=== PATIENT | female | born 1965 | race Caucasian/White ===

== ENCOUNTER 2018-05-13 13:31 | Emergency (ER) | payer OTHER ==
[~2018-05-13] VITALS: Ht 165.1 cm; Wt 65.0 kg
[2018-05-13] MEDS ORDERED: SODIUM CHLOR 0.9% 1000 ML INJ 1,000 ML IV SCH (13:44)
[2018-05-13 13:45] VITALS: BP 130/86; PULSE 102; RESP 20; O2SAT 97
[2018-05-13] MEDS ORDERED: LORazepam 2 MG/ML VIAL IM ONE (13:45)
[2018-05-13] MEDS ORDERED: SODIUM CHLORIDE 0.9% FLUSH 10 ML FLUSH IV FLUSH PRN (13:45)
[2018-05-13] MEDS ORDERED: HALOPERIDOL LACTATE 5 MG/ML AMP IM ONE (13:45)
[2018-05-13 14:02] VITALS: BP 130/86; PULSE 102; RESP 20; O2SAT 97
[2018-05-13] MEDS ORDERED: PLAV75TA29 PO (14:11)
[2018-05-13] MEDS ORDERED: HYDR-3576 PO (14:11)
[2018-05-13] MEDS ORDERED: OMEP40CA2 (14:11)
[2018-05-13] MEDS ORDERED: XANA2TAB2 PO (14:11)
[2018-05-13 14:16] VITALS: BP 130/86; PULSE 102; RESP 20; TEMP 98.2; O2SAT 97
[2018-05-13 14:55] LABS: AUTOMATED NEUTROPHIL # 1.8 TH/MM3 (1.8-7.7); BASOPHIL % 0.3 % (0.0-2.0); EOSINOPHIL # 0.3 TH/MM3 (0-0.4); EOSINOPHIL % 8.9 % (0.0-4.0); HEMATOCRIT 30.1 % (35.0-46.0); HEMOGLOBIN 10.2 GM/DL (11.6-15.3); LYMPH % 16.7 % (9.0-44.0); LYMPHOCYTE # 0.5 TH/MM3 (1.0-4.8); MEAN CELL VOLUME 88.8 FL (80.0-100.0); MEAN CORPUSCULAR HEMOGLOBIN 30.2 PG (27.0-34.0); MONO % 17.8 % (0.0-8.0); MONOCYTE # 0.6 TH/MM3 (0-0.9); NEUT % 56.3 % (16.0-70.0); PLATELET COUNT 161 TH/MM3 (150-450); RED BLOOD COUNT 3.39 MIL/MM3 (4.00-5.30); RED CELL DISTRIBUTION WIDTH 13.2 % (11.6-17.2); WHITE BLOOD COUNT 3.2 TH/MM3 (4.0-11.0)
[2018-05-13 15:07] LABS: LACTIC ACID SEPSIS PROTOCOL 2.9 mmol/L (0.4-2.0)
[2018-05-13 15:12] LABS: ALBUMIN 3.5 GM/DL (3.4-5.0); ALT (GPT) 48 U/L (10-53); AST (GOT) 61 U/L (15-37); BICARBONATE 20.8 MEQ/L (21.0-32.0); BLOOD UREA NITROGEN 20 MG/DL (7-18); CALCIUM 8.7 MG/DL (8.5-10.1); CHLORIDE 110 MEQ/L (98-107); CREATININE 0.99 MG/DL (0.50-1.00); GLOMERULAR FILTRATION RATE 59 ML/MIN (>89); GLUCOSE,RANDOM 71 MG/DL (74-106); SODIUM (NA) 144 MEQ/L (136-145)
[2018-05-13 15:22] LABS: ALKALINE PHOSPHATASE 70 U/L (45-117); TOTAL BILIRUBIN ADULT 0.5 MG/DL (0.2-1.0); TOTAL PROTEIN 8.4 GM/DL (6.4-8.2)
[2018-05-13] MEDS ORDERED: SODIUM CHLOR 0.9% 1000 ML INJ 1,000 ML IV ONE (15:30)
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
[2018-05-13 16:32] VITALS: BP 142/82; PULSE 81; RESP 15; TEMP 98.1; O2SAT 100
[2018-05-13 17:14] LABS: BILIRUBIN, URINE NEG (NEG); BLOOD, URINE NEG (NEG); GLUCOSE,URINE NEG (NEG); HYALINE CAST, URINE 1 /lpf (RARE); KETONE, URINE TRACE mg/dL (NEG); MUCUS URINE FEW /lpf (OCC); NITRITE,URINE NEG (NEG); SQUAMOUS EPITHELIAL CELL URINE 1 /hpf (0-5); URINE COLOR YELLOW (YELLW/STRAW); URINE LEUKOCYTE ESTERASE NEG (NEG)
--- NOTE | 2018-05-13 17:57 | RADRPT ---
EXAM DATE: 05/13/2018 5:51 PM EDT AGE/SEX: 52 years / Female INDICATIONS: Altered mental status, cephalgia. CLINICAL DATA: This is the patient's initial encounter. Patient reports that signs and symptoms have been present for 1 day and indicates a pain score of 8/10. MEDICAL/SURGICAL HISTORY: Cardiovascular disease. Diabetes. None. RADIATION DOSE: 52.13 CTDI (mGy) COMPARISON: No prior exams available for comparison. TECHNIQUE: CT of the head without contrast. Using automated exposure control and adjustment of the mA and/or kV according to patient size, radiation dose was kept as low as reasonably achievable to ob tain optimal diagnostic quality images. FINDINGS: Cerebrum: The ventricles are normal for age. Small area of encephalomalacia is identified in the le ft parieto-occipital region. No evidence of midline shift, mass lesion, hemorrhage or acute infarctio n. No extraaxial fluid collections are seen. Posterior Fossa: The cerebellum and brainstem are intact. The 4th ventricle is midline. The cerebe llopontine angle is unremarkable. Extracranial: The visualized portion of the orbits is intact. Skull: The calvaria is intact. No evidence of skull fracture. CONCLUSION: 1. 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 2. No evidence of acute infarct, hemorrhage, mass or edema. Electronically signed by: Paul Langston MD 05/13/2018 5:55 PM EDT
[2018-05-13 21:00] VITALS: BP 146/72; PULSE 80; RESP 18; O2SAT 98
[2018-05-14 06:27] VITALS: BP 116/72; PULSE 79; RESP 18; O2SAT 97
--- NOTE | 2018-05-14 16:30 | PD.PSY.CON ---
Provisional Diagnosis Admission Date Kelly I. Substance induced mood disorder, amphetamines use disorder Kelly II. unspecified personality disorder Kelly III. AIDS Kelly IV. homeless Kelly V. 57 History of Present Illness Service Psychiatry Consult Requested By ER Reason for Consult Bizarre behavior Primary Care Physician Unknown HPI Patient was seen this morning at 7:15 AM The patient is a 52-year-old woman, homeless, single, unemployed, with psychiatric history of bipolar disorder, amphetamine use disorder, previous psychiatric hospitalizations, no suicide attempts, medical history of AIDS, who presents to the emergency department for psychiatric evaluation under Hay[place] act. According to the Hayward act subject attempted to spit and throw her blood on bystanders. Subject stated to reporting democrat that she wanted to kill herself over the of a family member. She also advised that she ingested alcohol specifically a 4 loco. Patient became combative and aggressive, she was placed in protective custody and then while in the back of the [employer] car she hit her head on the cage multiple times stating she wanted to kill herself. Patient had a bottle of prescription medication but denied taking them. The bottle was for Keflex. Due to patient being very combative she was transported to the emergency department by [facility] fire rescue. Patient was restrained to the [facility]. However, today on psychiatric evaluation the patient is clinically sober, she admits that yesterday she was high amphetamines. The remember what she was doing. She denies depression, denies anxiety, denies psychosis, she denies suicidal and homicidal ideation, she denies visual and auditory hallucinations. Review of Systems Constitutional: DENIES: Diaphoretic episodes, Fatigue, Fever, Weight gain, Weight loss, Chills, Dizziness, Change in appetite, Night Sweats Endocrine: DENIES: Abnorml menstrual pattern, Heat/cold intolerance, Polydipsia , Polyuria, Polyphagia Eyes: DENIES: Blurred vision, Diplopia, Eye inflammation, Eye pain, Vision loss , Photosensitivity, Double Vision Ears, nose, mouth, throat: DENIES: Tinnitus, Hearing loss, Vertigo, Nasal discharge, Oral lesions, Throat pain, Hoarseness, Ear Pain, Running Nose, Epistaxis, Sinus Pain, Toothache, Odynophagia Respiratory: DENIES: Apneas, Cough, Snoring, Wheezing, Hemoptysis, Sputum production, Shortness of breath Cardiovascular: DENIES: Chest pain, Palpitations, Syncope, Dyspnea on Exertion , PND, Lower Extremity Edema, Orthopnea, Claudication Gastrointestinal: DENIES: Abdominal pain, Black stools, Bloody stools, Constipation, Diarrhea, Nausea, Vomiting, Difficulty Swallowing, Anorexia Genitourinary: DENIES: Abnormal vaginal bleeding, Dysmenorrhea, Dyspareunia, Sexual dysfunction, Urinary frequency, Urinary incontinence, Urgency, Hematuria , Dysuria, Nocturia, Vaginal discharge Musculoskeletal: DENIES: Joint pain, Muscle aches, Stiffness, Joint Swelling, Back pain, Neck pain Integumentary: DENIES: Abnormal pigmentation, Pruritus, Rash, Nail changes, Breast masses, Breast skin changes, Nipple discharge Hematologic/lymphatic: DENIES: Bruising, Lymphadenopathy Immunologic/allergic: DENIES: Eczema, Urticaria Neurologic: DENIES: Abnormal gait, Headache, Localized weakness, Paresthesias, Seizures, Speech Problems, Tremor, Poor Balance Psychiatric: DENIES: Anxiety, Confusion, Mood changes, Depression, Hallucinations, Agitation, Suicidal Ideation, Homicidal Ideation, Delusions Past Family Social History Coded Allergies: sulfamethoxazole (Verified Allergy, Unknown, 05/13/18) trimethoprim (Verified Allergy, Unknown, 05/13/18) Reported Medications Hydrocodone-Acetaminophen (Lorcet) 5-325 mg Tab, 1 TAB PO Q6H Y for PAIN, TAB 0 Refills 05/13/18 Omeprazole (Omeprazole) 40 Mg Cap, 40 MG DAILY, #30 CAP 0 Refills 05/13/18 Clopidogrel (Plavix) 75 Mg Tab, 75 MG PO DAILY for Blood Clot Prevention, #30 TAB 0 Refills 05/13/18 Alprazolam (Xanax) 2 Mg Tab, 2 MG PO Q8H Y for ANXIETY, TAB 0 Refills 05/13/18 Family Psych History No family psychiatric history Social History The patient was born and raised in [facility], she is homeless, unemployed, single Physical Exam Vital Signs Vital Signs Date Time Temp Pulse Resp B/P (MAP) Pulse Ox O2 Delivery O2 Flow Rate FiO2 05/14/18 10:52 05/14/18 06:27 79 18 97 Room Air 05/13/18 16:32 98.1 2.00 Lab Results Test 05/13/18 16:40 Urine Color YELLOW Urine Turbidity HAZY Urine pH 5.0 Urine Specific [place] 1.017 Urine Protein NEG mg/dL Urine Glucose (UA) NEG mg/dL Urine Ketones TRACE mg/dL Urine Occult Blood NEG Urine Nitrite NEG Urine Bilirubin NEG Urine Leukocyte Esterase NEG Urine RBC LESS THAN 1 /hpf Urine WBC 2 /hpf Urine Squamous Epithelial Cells 1 /hpf Urine Hyaline Casts 1 /lpf Urine Mucus FEW /lpf Microscopic Urinalysis Comment CATH-CULT NOT IND Urine Opiates Screen NEG Urine Barbiturates Screen NEG Urine Amphetamines Screen POS Urine Benzodiazepines Screen NEG Urine Cocaine Screen NEG Urine Cannabinoids Screen NEG Mental Status Examination Appearance: Appropriate Consciousness: Alert Orientation: x4 Motor Activity: Normal gait Speech: Unremarkable Language: Adequate Fund of Knowledge: Adequate Attention and Concentration: Adequate Memory: Unremarkable Mood: Appropriate Affect: Appropriate Thought Process & Associations: Intact Thought Content: Appropriate Hallucination Type: None Delusion Type: None Suicidal Ideation: No Suicidal Plan: No Suicidal Intention: No Homicidal Ideation: No Homicidal Plan: No Homicidal Intention: No Insight: Adequate Judgment: Adequate Assessment & Plan Problem List: (1) Substance induced mood disorder ICD Codes: F19.94 - Other psychoactive substance use, unspecified with psychoactive substance-induced mood disorder Assessment & Plan: On psychiatric evaluation today the patient does not present any acute objective or subjective neuropsychiatric symptoms that require an immediate psychiatric intervention. The patient denies depression, anxiety, go and psychosis. The patient denies suicidal and homicidal ideation, he denies visual and auditory hallucinations. Recent bizarre behavior in the street was most probably the result of amphetamine intoxication and character structure no psychiatric admission is indicated at this moment. Brief supportive psychotherapy provided. Assessment & Plan Estimated LOS: Patrice Barraza MD May 14, 2018 16:30
== END 2018-05-14 11:18 | disposition home or self-care (01) ==
LOC: NEPD 13:31 → NEPJ 05-14 11:18
DX: Z02.89 Encounter for other administrative examinations (principal); F15.10 Other stimulant abuse, uncomplicated; F19.94 Other psychoactive substance use, unspecified with psychoactive substance-induced mood disorder; D64.9 Anemia, unspecified; K21.9 Gastro-esophageal reflux disease without esophagitis; I10 Essential (primary) hypertension; E11.9 Type 2 diabetes mellitus without complications; B20 Human immunodeficiency virus [HIV] disease; Z72.0 Tobacco use; Z79.01 Long term (current) use of anticoagulants; Z79.899 Other long term (current) drug therapy; Z86.59 Personal history of other mental and behavioral disorders
CPT/HCPCS: 70450; 80053; 80307; 81001; 82550; 83605; 84443; 85025; 96360; 96372; 99285; J1630; J2060; J7030; P9612